=== PATIENT | female | born 2000 | race Caucasian/White ===

== ENCOUNTER → 2024-07-06 12:38 | Outpatient (BNVA) | payer OTHER, SELFPAY | PROVIDERS: Visit Provider Nurse Practitioner Women's Health | DX: N97.0 Female infertility associated with anovulation (principal) | CPT/HCPCS: 83036; 84146; 84439; 84443; 84481 ==

== ENCOUNTER → 2024-07-21 10:56 | Outpatient (BNVA) | payer OTHER, SELFPAY | PROVIDERS: Visit Provider Nurse Practitioner Women's Health | DX: E28.2 Polycystic ovarian syndrome (principal) | CPT/HCPCS: 76830; 82565; 84146 ==

== ENCOUNTER 2024-08-16 11:25 | Outpatient (CLI) | payer OTHER, SELFPAY ==
--- NOTE | 2024-08-16 11:45 | MR_ITS ---
WS: [id number] MRI HEAD WITHOUT AND WITH GADOLINIUM ENHANCEMENT with pituitary protocol TECHNIQUE: Sagittal T1, T2 axial, T2 axial FLAIR, axial susceptibility weighted imaging, axial diffus ion weighted images, and coronal T2 images were obtained. Pre and post-T1 axial and post T1 coronal i mages. ADC and FSPGR images. Dynamic pituitary protocol utilized CLINICAL INFORMATION: R79.89 - Other specified abnormal findings of blood chemi... COMPARISON: None. FINDINGS: No evidence of restricted diffusion to suggest acute ischemia. Ventricular system and basilar cistern s are patent. Normal posterior fossa. Normal vascular flow voids at the skull base. No extra-axial fl uid collections. No evidence of mass or mass effect. Retention cyst RIGHT maxillary sinus with partial opacification. Retention cyst measures 2.1 x 2.4 cm . Mastoid air cells are well aerated. Normal posterior nasopharynx. No hemosiderin on the susceptibly weighted images. Normal optic chiasm and pituitary infundibulum. No evidence of intrasellar or suprasellar mass. No evidence of microadenoma on the dynamic pituitary im aging. Some images degraded by patient motion. No abnormal gadolinium enhancement. No other acute fin dings. MR/MR pituitary wo/w con* [id number] IMPRESSION: Some images degraded by motion. 1. No evidence of intrasellar or suprasellar mass. 2. No evidence of microadenoma on the dynamic pituitary protocol imaging. 3. Normal optic chiasm and pituitary infundibulum. Normal enhancing pituitary tissue. 4. Retention cyst RIGHT maxillary sinus measuring 2.1 x 2.4 cm
[2024-08-16] MEDS: gadobenate dimeglumine 20 mL vial IV (12:38)
== END 2024-08-16 11:26 | disposition home or self-care (01) ==
PROVIDERS: Visit Provider Nurse Practitioner Women's Health
DX: J34.1 Cyst and mucocele of nose and nasal sinus (principal); R79.89 Other specified abnormal findings of blood chemistry
CPT/HCPCS: 70553

== ENCOUNTER → 2024-08-31 11:13 | Outpatient (BNVA) | payer OTHER, SELFPAY | PROVIDERS: Visit Provider Nurse Practitioner Women's Health | DX: Z32.01 Encounter for pregnancy test, result positive (principal) | CPT/HCPCS: 84702 ==

== ENCOUNTER → 2024-09-07 14:15 | Outpatient (BNVA) | payer OTHER, SELFPAY | PROVIDERS: Visit Provider Nurse Practitioner Women's Health | DX: N97.0 Female infertility associated with anovulation (principal) | CPT/HCPCS: 81025; 84146 ==